=== PATIENT | male | born 1990 | race Caucasian/White ===

== ENCOUNTER 2016-10-24 07:47 | Emergency (ER) | payer SELFPAY ==
[~2016-10-24] VITALS: Ht 167.6 cm; Wt 81.6 kg
--- NOTE | 2016-10-24 08:53 | RAD ---
Indication injury, pain. AP oblique and lateral views of the left ankle were obtained. No definite acute bony abnormality is seen. There is a probable accessory ossification center associated with the navicular bone. IMPRESSION: No acute bony finding seen
--- NOTE | 2016-10-24 09:13 | PHYS DOC ---
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 He's been able to ambulate without issue for any complaining of pain over the medial inner aspect of his left ankle. There is been no swelling no numbness and tingling no difficulty walking. Patient admits to no prior injury to this ankle. Came here today because his unit will require him to have an explanation for his injury will need to have a DA form 2173 completed. Review of Systems Review of Systems Musculoskeletal: Denies back pain, or his only complaint is left ankle pain Integument: Denies rash or skin lesions [] Neurologic: Denies headache, focal weakness or sensory changes Allergies Allergies Allergies Coded Allergies Type Severity Reaction Last Updated Verified No Known Drug Allergies 10/24/16 No Physical Exam Physical Exam Vital signs reviewed within normal limits. Constitutional: Well developed, well nourished, no acute distress, non-toxic appearance. [] Skin: Warm, dry, no erythema, no rash. [] Back: No tenderness, no CVA tenderness. [] Extremities: No tenderness, no cyanosis, no clubbing, ROM intact, no edema. Has minimal tenderness to palpation of the medial aspect of the left ankle. No soft tissue swelling no tenderness along the fifth metatarsal. Patient's range of motion intact with anterior posterior draw negative. Neurologic: Alert and oriented X 3, normal motor function, normal sensory function, no focal deficits noted. [] Psychologic: Affect normal, judgement normal, mood normal. [] Current Patient Data Vital Signs Vital Signs Date Time Temp Pulse Resp B/P (MAP) Pulse Ox O2 Delivery O2 Flow Rate FiO2 10/24/16 08:00 98.1 84 16 96 Room Air 98.1 EKG EKG [] Radiology/Procedures Radiology/Procedures [] IMAGING REPORT Signed PATIENT: MARIAMA LEE ACCOUNT: [id number] : 1990 LOCATION: ER AGE: 26 SEX: M EXAM STATUS: REG ER ORD. PHYSICIAN: TIFFANIE BARBA MD REASON: trauma PROCEDURE: ANKLE LEFT 3V Indication injury, pain. AP oblique and lateral views of the left ankle were obtained. No definite acute bony abnormality is seen. There is a probable accessory ossification center associated with the navicular bone. IMPRESSION: No acute bony finding seen DICTATED and SIGNED BY: BROCK HENDRICKS MD DATE: 10/24/16 0848 CC: TIFFANIE BARBA MD; UNKNOWN PCP NAME ~ Course & Med Decision Making Course & Med Decision Making Pertinent Labs and Imaging studies reviewed. (See chart for details) 3 view left ankle films reviewed by me Dr. Barba demonstrated no acute fracture no soft tissue swelling no dislocation no foreign body. Impression: Ankle sprain first-degree disPosition PCP follow-up [] Dragon Disclaimer Dragon Disclaimer This electronic medical record was generated, in whole or in part, using a voice recognition dictation system. Departure Departure Impression: Primary Impression: Ankle sprain Disposition: HOME, SELF-CARE Condition: STABLE Referrals: UNKNOWN PCP NAME (PCP) Patient Instructions: Ankle Sprain Additional Instructions: These follow-up and sick call if you have any question concerns. Although no obvious fractures noted on x-ray today subtle fractures can be missed. Please follow-up with your [facility] in the next week if your symptoms continue to get a repeat set of films. Scripts Naproxen (NAPROSYN) 500 Mg Tablet 1 TAB PO BID, #14 TAB 1 Refill Prov: TIFFANIE BARBA MD 10/24/16 TIFFANIE BARBA MD Oct 24, 2016 09:13
[2016-10-24] MEDS ORDERED: NAPR500T PO (09:18)
[2016-10-24 09:25] VITALS: BP 127/69
== END 2016-10-24 09:30 | disposition home or self-care (01) ==
LOC: ER 07:47
DX: S93.402A Sprain of unspecified ligament of left ankle, initial encounter (principal); X58.XXXA Exposure to other specified factors, initial encounter; Y93.01 Activity, walking, marching and hiking; Y92.89 Other specified places as the place of occurrence of the external cause; Y99.8 Other external cause status
CPT/HCPCS: 73610; 99284